=== PATIENT | male | born 2000 | race Caucasian/White ===

== ENCOUNTER 2024-10-23 13:17 | Emergency (ER) | payer BC ==
[~2024-10-23] VITALS: Ht 198.1 cm; Wt 81.6 kg
[2024-10-23] MEDS ORDERED: IV NS 0.9% 500 ML IV ONE (14:24)
[2024-10-23] MEDS ORDERED: IOHEXOL-350 100 ML VIAL IV ONE (14:24)
[2024-10-23 15:50] VITALS: BP 119/76; TEMP 98.1; O2SAT 100
== END 2024-10-23 16:03 | disposition home or self-care (01) ==
LOC: ER 13:37
DX: R51.9 Headache, unspecified (principal); F17.200 Nicotine dependence, unspecified, uncomplicated; Z60.2 Problems related to living alone
CPT/HCPCS: 99285; 70498; 70496; J7040; Q9967